=== PATIENT | male | born 2000 | race African-American/Black ===

== ENCOUNTER 2021-08-28 18:15 | Observation (INO) | payer MEDICAID, SELFPAY ==
[2021-08-28] MEDS ORDERED: Morphine 4 MG/ML VIAL ONE ×2 (19:07→20:28)
[2021-08-28] MEDS ORDERED: Ondansetron PF 4 MG/2 ML Vial ONE (19:07)
[2021-08-28 19:21] LABS: #Eosinphils 0.1 10x3/uL (0.0-0.5); #Monocytes 0.6 10x3/uL (0.0-1.1); #Neutrophils 10.5 10x3/uL (1.5-8.4); %Basophils 0.2 % (0.0-2.0); %Eosinophils 0.6 % (0.0-6.0); %Lymphocytes 10.9 % (18.0-47.0); %Monocytes 4.5 % (0.0-10.0); %Neutrophils 83.4 % (40.0-75.0); Hemoglobin 15.7 g/dL (13.5-17.5); Mean Corpuscular HGB CONC 33.6 g/dL (32.0-36.0); Mean Corpuscular Hemoglobin 30.1 pg (27.0-33.0); Mean Corpuscular Volume 89.6 fl (81.2-95.1); Mean Platelet Volume 10.9 fl (7.4-10.4); Platelet Count 190 10x3/uL (150-450); RBC Distribution Width 12.1 % (11.5-14.5); Red Blood Cell (RBC) Count 5.21 10x6/uL (4.32-5.72); White Blood Cell (WBC) Count 12.6 10x3/uL (3.5-10.5)
[2021-08-28 19:31] LABS: ALT (SGPT) 33 U/L (8-55); AST (SGOT) 22 U/L (5-34); Albumin 4.5 g/dL (3.5-5.0); Alkaline Phosphatase 101 U/L (50-130); Anion Gap 14 mmol/L (10-20); BUN (Urea Nitrogen) 12 mg/dL (8.9-20.6); Bilirubin, Total 0.8 mg/dL (0.2-1.2); Calc. Creatinine Clearance 0 mL/min (70-130); Calcium 9.6 mg/dL (7.8-10.44); Carbon Dioxide 21 mmol/L (22-29); Chloride 107 mmol/L (98-107); Globulin 2.9 g/dL (2.4-3.5); Glucose 107 mg/dL (70-105); Lipase 20 U/L (8-78); Potassium 4.2 mmol/L (3.5-5.1); Protein, Total 7.4 g/dL (6.0-8.3); Sodium 138 mmol/L (136-145)
[2021-08-28 20:04] LABS: Bilirubin Neg (Negative); Blood, Urine Negative (Negative); Clarity Clear (Clear); Glucose, Urine (Dipstick) Normal (Negative); Ketone, Urine Negative (Negative); Leukocyte Negative (Negative); Nitrite Negative (Negative); Protein, Urine (Dipstick) Negative (Neg-Trace); Urobilinogen Normal mg/dL (Less than 2)
[2021-08-28] MEDS ORDERED: Piperacillin/Tazobactam 4.5 GM VIAL ONE (20:28)
[2021-08-28 22:01] LABS: SARS-CoV-2 NAA Rapid Test Not Detected (NotDetected)
[2021-08-28 22:35] VITALS: BMI 32.3
[2021-08-28] MEDS ORDERED: Morphine 4 MG/ML VIAL SLOW IVP PRN (22:48)
[2021-08-28] MEDS ORDERED: Ondansetron PF 4 MG/2 ML Vial IVP PRN (23:00)
[2021-08-28] MEDS ORDERED: Ondansetron ODT 4 MG TAB SL PRN (23:00)
[2021-08-29] MEDS ORDERED: Piperacillin/Tazobactam 3.375 GM in Sodium Chloride 0.9% 100 ML IVPB SCH ×2 (05:00→12:00)
[2021-08-29] MEDS: Lactated Ringer's 1,000 ML IV SCH ×2 (07:49→08:58)
[2021-08-29] MEDS ORDERED: Ondansetron PF 4 MG/2 ML Vial IVP PRN (08:45)
[2021-08-29] MEDS ORDERED: hydrALAZINE 20 MG/ML VIAL SLOW IVP PRN (08:45)
[2021-08-29] MEDS ORDERED: Lactated Ringer's 1,000 ML IV SCH (08:45)
[2021-08-29] MEDS ORDERED: Morphine 2 MG/ML VIAL SLOW IVP PRN ×2 (08:45→14:45)
[2021-08-29] MEDS ORDERED: Morphine 4 MG/ML VIAL SLOW IVP PRN ×2 (08:45→14:52)
[2021-08-29] MEDS ORDERED: Promethazine HCl 25 MG/ML VIAL IM PRN (08:45)
[2021-08-29] MEDS ORDERED: Famotidine/PF 20 mg/2ml Vial SLOW IVP SCH (09:00)
[2021-08-29] MEDS ORDERED: EPINEPHrine 1 MG/ML AMP ONE (11:50)
[2021-08-29] MEDS ORDERED: Bupivacaine PF 0.5% 30 ML VIAL ONE (11:51)
[2021-08-29] MEDS ORDERED: Ketorolac Tromethamine 30 MG/ML VIAL IVP SCH (12:00)
[2021-08-29] MEDS ORDERED: PROPOFOL 20 ML ONE (12:20)
[2021-08-29] MEDS ORDERED: Fentanyl 250 MCG/5 ML VIAL ONE (12:20)
[2021-08-29] MEDS ORDERED: Rocuronium Bromide 10 MG/ML (10ML VIAL) ONE (12:22)
[2021-08-29] MEDS ORDERED: Dexamethasone 4 mg/ml Vial ONE (12:22)
[2021-08-29] MEDS ORDERED: Ondansetron PF 4 MG/2 ML Vial ONE (12:22)
[2021-08-29] MEDS ORDERED: Lidocaine 1% PF 5 ML VIAL ONE (12:22)
[2021-08-29] MEDS ORDERED: Succinylcholine 200 MG/10 ml SYRINGE FS ONE (12:25)
[2021-08-29] MEDS ORDERED: Piperacillin/Tazobactam 3.375 GM VIAL ONE (12:44)
[2021-08-29] MEDS ORDERED: Glycopyrrolate 0.2 MG/ML 5 ML SYRINGE ONE (12:53)
[2021-08-29] MEDS ORDERED: Ketorolac Tromethamine 30 MG/ML VIAL ONE (12:56)
[2021-08-29] MEDS ORDERED: HYDROcodone/Acetaminophen 5/325 mg Tablet PO PRN ×2 (14:45)
[2021-08-29 16:49] VITALS: BP 121/59; TEMP 97
[2021-08-29] MEDS ORDERED: Famotidine 20 MG TAB PO SCH (21:00)
[2021-08-30] MEDS ORDERED: FLU VACC QS2021-22(6MOS UP)/PF 60 MCG/0.5 ML SYRINGE IM ONE (09:00)
== END 2021-08-29 18:34 | disposition home or self-care (01) ==
LOC: CSHERS 18:15 → CSHTELE 18:16 → INTOOBSV 18:16
PROVIDERS: ADMIT Surgery; ATTEND Surgery
PROC: 0DTJ4ZZ Resection of Appendix, Percutaneous Endoscopic Approach (ICD-10-PCS; principal; 2021-08-29)
DX: K35.80 Unspecified acute appendicitis (principal)
CPT/HCPCS: 36415; 74177; 80053; 81003; 83690; 85025; 88304; 96374; 96375; 96376; G0378; J0171; J1100; J1885; J2270; J2405; J2543; J2704; J3010; J3490; J7120; S0020; U0002